=== PATIENT | male | born 2000 | race Caucasian/White ===

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

== ENCOUNTER → 2020-07-18 | Outpatient (CLI) | payer BC ==
--- NOTE | 2020-07-18 11:50 | US ---
EXAMINATION TYPE: US abdomen complete DATE OF EXAM: 07/18/2020 COMPARISON: NONE CLINICAL HISTORY: N04.9 Nephretic syndrome, R94.5 elevated liver enz. EXAM MEASUREMENTS: Liver Length: 11.5 cm Gallbladder Wall: 0.2 cm CBD: 0.3 cm Spleen: 11.6 cm Right Kidney: 9.6 x 4.1 x 4.9 cm Left Kidney: 10.8 x 4.9 x 4.9 cm Pancreas: visualized portions wnl Liver: wnl Gallbladder: No stones seen Evidence for sonographic Turcios's sign: No CBD: wnl Spleen: wnl Right Kidney: No hydronephrosis or masses seen Left Kidney: No hydronephrosis or masses seen Upper IVC: wnl Abd Aorta: wnl The liver is homogenous. The intrahepatic portion of the IVC and proximal abdominal aorta are within normal limits. There is no evidence of cholelithiasis. Common bile duct is unremarkable. The visu alized portions of the pancreas are homogenous. The spleen is unremarkable. Kidneys are symmetric a nd free of hydronephrosis. No renal lesions are seen. IMPRESSION: Unremarkable study. No hydronephrosis noted bilaterally.
== END | disposition home or self-care (01) ==
LOC: RADUSWWP 11:05
PROVIDERS: ATTEND Family Medicine
DX: N04.9 Nephrotic syndrome with unspecified morphologic changes (principal); R94.5 Abnormal results of liver function studies
CPT/HCPCS: 76700

== ENCOUNTER 2021-03-24 17:36 | Observation (INO) | payer BC ==
[2021-03-24] MEDS ORDERED: SODIUM CHLORIDE 0.9% 1,000 ML IV STA (18:24)
[2021-03-24] MEDS ORDERED: ONDANSETRON 4 MG/2 ML VIAL IVP STA (18:24)
[2021-03-24] MEDS ORDERED: MORPHINE SULFATE 2 MG/ML SYRINGE IVP STA (18:24)
[2021-03-24 18:59] LABS: Appearance,Urine Clear (Clear); Bilirubin,Urine Negative (Negative); Blood,Urine Negative (Negative); Color,Urine Light Yellow; Glucose,Urine (UA) Negative (Negative); Ketones,Urine Negative (Negative); Leukocyte Esterase,Urine Negative (Negative); Nitrite,Urine Negative (Negative); Protein,Urine Negative (Negative); Specific Gravity,Urine 1.008 (1.001-1.035); Urobilinogen,Urine <2.0 mg/dL (<2.0)
[2021-03-24 19:00] LABS: Basophils # (A) 0.1 k/uL (0-0.2); Basophils % (A) 0 %; Eosinophils # (A) 0.1 k/uL (0-0.7); Eosinophils % (A) 1 %; HCT 44.3 % (39.0-53.0); HGB 15.7 gm/dL (13.0-17.5); Lymphocytes % (A) 6 %; MCH 31.5 pg (25.0-35.0); MCHC 35.5 g/dL (31.0-37.0); MCV 88.7 fL (80.0-100.0); Mean Platelet Volume 7.3; Monocytes # (A) 0.9 k/uL (0-1.0); Monocytes % (A) 6 %; Neutrophils # (A) 13.4 k/uL (1.3-7.7); Neutrophils % (A) 86 %; Platelet Count 238 k/uL (150-450); RBC 4.99 m/uL (4.30-5.90); RDW 11.7 % (11.5-15.5); WBC 15.5 k/uL (3.8-10.6)
[2021-03-24 19:11] LABS: ALT 22 U/L (4-49); AST 26 U/L (17-59); African American GFR (CKD) >90 (>60 ml/min/1.73 sqM); Albumin 4.7 g/dL (3.5-5.0); Alkaline Phosphatase 69 U/L (38-126); Anion Gap 7 mmol/L; Blood Urea Nitrogen 9 mg/dL (9-20); Calcium 9.7 mg/dL (8.4-10.2); Carbon Dioxide 30 mmol/L (22-30); Chloride 103 mmol/L (98-107); Glucose 85 mg/dL (74-99); Lipase 41 U/L (23-300); Non-African American GFR(CKD) >90 (>60 ml/min/1.73 sqM); Potassium 3.9 mmol/L (3.5-5.1); Sodium 140 mmol/L (137-145); Total Bilirubin 0.6 mg/dL (0.2-1.3); Total Protein 7.4 g/dL (6.3-8.2)
--- NOTE | 2021-03-24 20:09 | CT ---
EXAMINATION TYPE: CT abdomen pelvis w con DATE OF EXAM: 03/24/2021 COMPARISON: None HISTORY: Generalized pain with nausea. CT DLP: 648.6 mGycm Automated exposure control for dose reduction was used. CONTRAST: Performed with IV Contrast, patient injected with 100 mL of Isovue 300. Images obtained from the diaphragm to the floor the pelvis with IV contrast. Lung bases are clear. There is no pleural effusion. Heart size is normal. There is no pericardial eff usion. Liver spleen stomach pancreas gallbladder appear normal. The bile ducts are not dilated. There is no adrenal mass. Kidneys show satisfactory contrast opacification. There is no hydronephrosi s. Ureters are not dilated. Bladder distends smoothly. There is no inguinal hernia. There is no free fluid in the pelvis. There is no evidence of a pelvic mass. There is dilated thick-walled appendix th at measures up to 15 mm in diameter. The lumbar vertebra have normal alignment. Posterior elements are intact. Bony pelvis is intact. Hip joints appear normal. There is no mesenteric edema. There is no ascites or free air. There is no bowel obstruction. IMPRESSION: Thickened appendix consistent with acute appendicitis. No abscess.
[2021-03-24] MEDS ORDERED: PIPERACILLIN-TAZOBACTAM 3.375 GM in SODIUM CHLORIDE 0.9% 100 ML IVPB STA (20:23)
[2021-03-24] MEDS ORDERED: ONDANSETRON 4 MG/2 ML VIAL IVP PRN (20:36)
[2021-03-24] MEDS ORDERED: MORPHINE SULFATE 2 MG/ML SYRINGE IV PRN (20:36)
[2021-03-24] MEDS ORDERED: NALOXONE 0.4 MG/ML 1 ML VIAL IV PRN ×2 (20:36→22:36)
--- NOTE | 2021-03-24 20:36 | ED ---
Abdominal Pain HPI - General Chief Complaint: Abdominal Pain Stated Complaint: R side pain Time Seen by Provider: 03/24/21 17:48 Source: patient Mode of arrival: ambulatory Limitations: no limitations - History of Present Illness Initial Comments: 21-year-old male patient presents to the emergency department today for evaluation of right lower quadrant abdominal pain. Patient states he fell unwell when he woke up around 11:00 this afternoon couple hours later started having severe pain to the right lower quadrant. States he did feel feverish. Reports nausea no vomiting. Denies any diarrhea or constipation. States he is having some hesitancy with urine. Denies hematuria or dysuria. Last ate at 12- 1:00pm. Denies history of abdominal surgery. Has history of nephrotic syndrome. Denies taking any medications for his symptoms. Patient denies any recent rash, cough, shortness of breath, chest pain, diarrhea, constipation, back pain, numbness, tingling, dizziness, weakness, headache, visual changes, or any other complaints. - Related Data Home Medications Medication Instructions Recorded Confirmed No Known Home Medications 03/24/21 03/24/21 Allergies Allergy/AdvReac Type Severity Reaction Status Date / Time No Known Allergies Allergy Verified 03/24/21 18:49 Review of Systems ROS Statement: Those systems with pertinent positive or pertinent negative responses have been documented in the HPI. ROS Other: All systems not noted in ROS Statement are negative. Past Medical History Past Medical History: No Reported History Additional Past Medical History / Comment(s): Kidney History of Any Multi-Drug Resistant Organisms: None Reported Past Surgical History: Orthopedic Surgery Past Psychological History: No Psychological Hx Reported Smoking Status: Never smoker Past Alcohol Use History: None Reported Past Drug Use History: None Reported General Exam Limitations: no limitations General appearance: alert, in no apparent distress, other (Physical well- developed, well-nourished adult male patient in no acute distress. Vital signs upon presentation temperature 98.2F, pulse 105, respirations 20, blood pressure 126/61, pulse ox 98% on room air.) Eye exam: Present: normal appearance, PERRL, EOMI. Absent: scleral icterus, conjunctival injection, periorbital swelling ENT exam: Present: normal exam, normal oropharynx, mucous membranes moist Respiratory exam: Present: normal lung sounds bilaterally. Absent: respiratory distress, wheezes, rales, rhonchi, stridor Cardiovascular Exam: Present: regular rate, normal rhythm, normal heart sounds. Absent: systolic murmur, diastolic murmur, rubs, gallop, clicks GI/Abdominal exam: Present: soft, tenderness (RL), normal bowel sounds. Absent: distended (RLQ, LLQ), guarding, rebound, rigid Neurological exam: Present: alert, oriented X3, CN II-XII intact Psychiatric exam: Present: normal affect, normal mood Skin exam: Present: warm, dry, intact, normal color. Absent: rash Course Vital Signs 03/24/21 17:43 Temperature 98.2 F Pulse Rate 105 H Respiratory 20 Rate Blood Pressure 126/61 O2 Sat by Pulse 98 Oximetry Medical Decision Making - Medical Decision Making 20-year-old male patient presented to the emergency department today for evaluation of right lower quadrant abdominal pain and nausea. Physical examination did reveal right lower quadrant tenderness. Left lower quadrant tenderness. Labs reviewed and did reveal elevated white blood cell count at 15,000. CT abdomen and pelvis was obtained and did reveal dilated appendix at 15 mm. No evidence for rupture abscess. Started Zosyn. Contacted Dr. Donaldson who will be taking patient to the OR [facility]. Discussed results and plan with patient and mother. Discussed with my attending Dr. Farrar. - Lab Data Result diagrams: 03/24/21 18:36 03/24/21 18:36 Lab Results 03/24/21 03/24/21 03/24/21 Range/Units 18:36 18:36 18:36 WBC 15.5 H (3.8-10.6) k/uL RBC 4.99 (4.30-5.90) m/uL Hgb 15.7 (13.0-17.5) gm/dL Hct 44.3 (39.0-53.0) % MCV 88.7 (80.0-100.0) fL MCH 31.5 (25.0-35.0) pg MCHC 35.5 (31.0-37.0) g/dL RDW 11.7 (11.5-15.5) % Plt Count 238 (150-450) k/uL MPV 7.3 Neutrophils % 86 % Lymphocytes % 6 % Monocytes % 6 % Eosinophils % 1 % Basophils % 0 % Neutrophils # 13.4 H (1.3-7.7) k/uL Lymphocytes # 1.0 (1.0-4.8) k/uL Monocytes # 0.9 (0-1.0) k/uL Eosinophils # 0.1 (0-0.7) k/uL Basophils # 0.1 (0-0.2) k/uL Sodium 140 (137-145) mmol/L Potassium 3.9 (3.5-5.1) mmol/L Chloride 103 (98-107) mmol/L Carbon Dioxide 30 (22-30) mmol/L Anion Gap 7 mmol/L BUN 9 (9-20) mg/dL Creatinine 0.86 (0.66-1.25) mg/dL Est GFR (CKD-EPI)AfAm >90 (>60 ml/min/1.73 sqM) Est GFR (CKD-EPI)NonAf >90 (>60 ml/min/1.73 sqM) Glucose 85 (74-99) mg/dL Plasma Lactic Acid Jian (0.7-2.0) mmol/L Calcium 9.7 (8.4-10.2) mg/dL Total Bilirubin 0.6 (0.2-1.3) mg/dL AST 26 (17-59) U/L ALT 22 (4-49) U/L Alkaline Phosphatase 69 (38-126) U/L Total Protein 7.4 (6.3-8.2) g/dL Albumin 4.7 (3.5-5.0) g/dL Lipase 41 (23-300) U/L Urine Color Light Yellow Urine Appearance Clear (Clear) Urine pH 7.0 (5.0-8.0) Ur Specific [place] 1.008 (1.001-1.035) Urine Protein Negative (Negative) Urine Glucose (UA) Negative (Negative) Urine Ketones Negative (Negative) Urine Blood Negative (Negative) Urine Nitrite Negative (Negative) Urine Bilirubin Negative (Negative) Urine Urobilinogen <2.0 (<2.0) mg/dL Ur Leukocyte Esterase Negative (Negative) 03/24/21 Range/Units 18:36 WBC (3.8-10.6) k/uL RBC (4.30-5.90) m/uL Hgb (13.0-17.5) gm/dL Hct (39.0-53.0) % MCV (80.0-100.0) fL MCH (25.0-35.0) pg MCHC (31.0-37.0) g/dL RDW (11.5-15.5) % Plt Count (150-450) k/uL MPV Neutrophils % % Lymphocytes % % Monocytes % % Eosinophils % % Basophils % % Neutrophils # (1.3-7.7) k/uL Lymphocytes # (1.0-4.8) k/uL Monocytes # (0-1.0) k/uL Eosinophils # (0-0.7) k/uL Basophils # (0-0.2) k/uL Sodium (137-145) mmol/L Potassium (3.5-5.1) mmol/L Chloride (98-107) mmol/L Carbon Dioxide (22-30) mmol/L Anion Gap mmol/L BUN (9-20) mg/dL Creatinine (0.66-1.25) mg/dL Est GFR (CKD-EPI)AfAm (>60 ml/min/1.73 sqM) Est GFR (CKD-EPI)NonAf (>60 ml/min/1.73 sqM) Glucose (74-99) mg/dL Plasma Lactic Acid Jian 1.3 (0.7-2.0) mmol/L Calcium (8.4-10.2) mg/dL Total Bilirubin (0.2-1.3) mg/dL AST (17-59) U/L ALT (4-49) U/L Alkaline Phosphatase (38-126) U/L Total Protein (6.3-8.2) g/dL Albumin (3.5-5.0) g/dL Lipase (23-300) U/L Urine Color Urine Appearance (Clear) Urine pH (5.0-8.0) Ur Specific [place] (1.001-1.035) Urine Protein (Negative) Urine Glucose (UA) (Negative) Urine Ketones (Negative) Urine Blood (Negative) Urine Nitrite (Negative) Urine Bilirubin (Negative) Urine Urobilinogen (<2.0) mg/dL Ur Leukocyte Esterase (Negative) - Radiology Data Radiology results: report reviewed, image reviewed CT abdomen and pelvis is obtained. Report was reviewed in its entirety. Impression by Dr. Stone shows thickened appendix consistent with acute appendicitis. No abscess. Disposition Clinical Impression: Acute appendicitis Disposition: ADMITTED IP TO THIS [facility] Condition: Serious Referrals: Bg Eden DO [Primary Care Provider] - 1-2 days Decision to Admit Reason: Admit from EC Decision Date: 03/24/21 Decision Time: 20:36
[2021-03-24] MEDS ORDERED: NEOSTIGMINE 1 MG/ML 10 ML VIAL ONE (21:51)
[2021-03-24] MEDS ORDERED: PROPOFOL 10 MG/ML 20 ML VIAL IV ONE (21:51)
[2021-03-24] MEDS ORDERED: KETOROLAC 15 MG/ML 1 ML VIAL ONE (21:51)
[2021-03-24] MEDS ORDERED: fentaNYL (PF) 50 MCG/ML 2 ML AMP ONE (21:51)
[2021-03-24] MEDS ORDERED: LACTATED RINGERS 1,000 ML IV ONE (21:51)
[2021-03-24] MEDS ORDERED: LIDOCAINE 1% INJ 10MG/ML (20 ML MDV) ONE (21:51)
[2021-03-24] MEDS ORDERED: ROCURONIUM 10 MG/ML (5 ML VIAL) IV ONE (21:51)
[2021-03-24] MEDS ORDERED: ONDANSETRON 4 MG/2 ML VIAL ONE (21:51)
[2021-03-24] MEDS ORDERED: SUCCINYLCHOLINE CHLORIDE 100 MG/5 ML SYR IV ONE (21:51)
[2021-03-24] MEDS ORDERED: DEXAMETHASONE SOD PHOSPHATE 10 MG/ML 1 ML VIAL ONE (21:51)
[2021-03-24] MEDS ORDERED: GLYCOPYRROLATE 0.2 MG/ML 2 ML VIAL ONE (21:51)
[2021-03-24] MEDS ORDERED: MIDAZOLAM 2 MG/2 ML VIAL ONE (21:51)
--- NOTE | 2021-03-24 21:53 | P.GSHP ---
History of Present Illness H&P Date: 03/24/21 This is a 20-year-old male presented the emergency room after waking up with abdominal pain this morning. He states that it was generalized abdominal pain however over the last several hours it's been located in his right lower quadrant. He has no past surgical history other than an orthopedic surgery on his elbow. He denies any nausea vomiting he denies any change in bowel movement he denies any bloody stools. He has a history of nephrotic syndrome. His kidney function is normal today. 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 On computed tomography scan patient was found to have findings consistent with acute appendicitis. Past Medical History Past Medical History: No Reported History Additional Past Medical History / Comment(s): Kidney History of Any Multi-Drug Resistant Organisms: None Reported Past Surgical History: Orthopedic Surgery Past Psychological History: No Psychological Hx Reported Smoking Status: Never smoker Past Alcohol Use History: None Reported Past Drug Use History: None Reported Medications and Allergies Home Medications Medication Instructions Recorded Confirmed Type No Known Home Medications 03/24/21 03/24/21 History Allergies Allergy/AdvReac Type Severity Reaction Status Date / Time No Known Allergies Allergy Verified 03/24/21 18:49 Surgical - Exam Osteopathic Statement: *. No significant issues noted on an osteopathic structural exam other than those noted in the History and Physical/Consult. Vital Signs Temp Pulse Resp BP Pulse Ox 98.2 F 105 H 20 126/61 98 03/24/21 17:43 03/24/21 17:43 03/24/21 17:43 03/24/21 17:43 03/24/21 17:43 - General well developed, well nourished, no distress - Eyes PERRL - Neck no masses, trachea midline - Respiratory normal expansion, normal respiratory effort - Cardiovascular Rhythm: regular - Abdomen Soft nondistended tender to palpation in the right lower quadrant no rebound no rigidity no guarding - Psychiatric oriented to time, oriented to person, oriented to place Results - Labs 03/24/21 18:36 03/24/21 18:36 Abnormal Lab Results - Last 24 Hours (Table) 03/24/21 Range/Units 18:36 WBC 15.5 H (3.8-10.6) k/uL Neutrophils # 13.4 H (1.3-7.7) k/uL Diabetes panel 03/24/21 Range/Units 18:36 Sodium 140 (137-145) mmol/L Potassium 3.9 (3.5-5.1) mmol/L Chloride 103 (98-107) mmol/L Carbon Dioxide 30 (22-30) mmol/L BUN 9 (9-20) mg/dL Creatinine 0.86 (0.66-1.25) mg/dL Glucose 85 (74-99) mg/dL Calcium 9.7 (8.4-10.2) mg/dL AST 26 (17-59) U/L ALT 22 (4-49) U/L Alkaline Phosphatase 69 (38-126) U/L Total Protein 7.4 (6.3-8.2) g/dL Albumin 4.7 (3.5-5.0) g/dL Calcium panel 03/24/21 Range/Units 18:36 Calcium 9.7 (8.4-10.2) mg/dL Albumin 4.7 (3.5-5.0) g/dL Pituitary panel 03/24/21 Range/Units 18:36 Sodium 140 (137-145) mmol/L Potassium 3.9 (3.5-5.1) mmol/L Chloride 103 (98-107) mmol/L Carbon Dioxide 30 (22-30) mmol/L BUN 9 (9-20) mg/dL Creatinine 0.86 (0.66-1.25) mg/dL Glucose 85 (74-99) mg/dL Calcium 9.7 (8.4-10.2) mg/dL Adrenal panel 03/24/21 Range/Units 18:36 Sodium 140 (137-145) mmol/L Potassium 3.9 (3.5-5.1) mmol/L Chloride 103 (98-107) mmol/L Carbon Dioxide 30 (22-30) mmol/L BUN 9 (9-20) mg/dL Creatinine 0.86 (0.66-1.25) mg/dL Glucose 85 (74-99) mg/dL Calcium 9.7 (8.4-10.2) mg/dL Total Bilirubin 0.6 (0.2-1.3) mg/dL AST 26 (17-59) U/L ALT 22 (4-49) U/L Alkaline Phosphatase 69 (38-126) U/L Total Protein 7.4 (6.3-8.2) g/dL Albumin 4.7 (3.5-5.0) g/dL Assessment and Plan Assessment: Acute appendicitis Plan: I discussed laparoscopic appendectomy possible open with the patient risks benefits and alternatives including risks of bleeding infection damage to andrea rounding tissue need for further operation and need for conversion to open were all discussed with patient he stated he understood agreed and consented. Informed consent was obtained. Patient will be kept nothing by mouth and started on IV antibiotics.
[2021-03-24] MEDS ORDERED: BUPIVACAIN-EPI 0.5%-1:200,000 30 ML VIAL SQ ONE ×2 (22:09)
--- NOTE | 2021-03-24 22:35 | P.OP ---
Date of Procedure: 03/24/21 Preoperative Diagnosis: Acute appendicitis Postoperative Diagnosis: Acute appendicitis Procedure(s) Performed: Laparoscopic appendectomy Anesthesia: GINNY Surgeon: Todd Donaldson Estimated Blood Loss (ml): 5 Pathology: none sent Condition: stable Disposition: PACU Description of Procedure: Patient is brought operative suite remained in the supine position underwent general endotracheal anesthesia per Department of anesthesia prepped and draped usual sterile fashion timeout performed correct patient correct procedure correct site was verified. A 5 mm incision was made at palmers point in the left upper quadrant and using a Visiport the abdomen was entered under direct visualization and insufflated. No injuries were noted. A 5 mm port was placed infraumbilical and a 12 mm port was placed in the left lower quadrant. Patient was placed in Trendelenburg right side up and the appendix is visualized noted be acutely inflamed. The mesial appendix was taken down with a LigaSure device to the base the base of the appendix at the cecum. Using a 45 mm purple load Endo CHELY stapler the appendix was stapled across at the base of the cecum and placed in Endo Catch bag and removed. The area was suctioned hemostasis was noted. 0 Vicryl with the aid of a Samm-Nguyen suture passer was used to close the fascia and a 12 mm port site. All other ports removed under direct visualization and the abdomen was desufflated. Skin was closed with 4-0 subcuticular Vicryl stitches and skin glue patient tolerated the procedure well there are no apparent complications
[2021-03-24] MEDS ORDERED: LACTATED RINGERS 1,000 ML IV SCH (22:45)
[2021-03-24] MEDS: HYDROcodone/APAP 5-325MG 1 EACH TAB PO PRN (23:51)
[2021-03-25] MEDS ORDERED: PIPERACILLIN-TAZOBACTAM 3.375 GM in SODIUM CHLORIDE 0.9% 100 ML IVPB SCH (04:00)
[2021-03-25 08:30] VITALS: BP 110/59; PULSE 68; RESP 16; TEMP 97.9
[2021-03-25] MEDS: HYDROcodone/APAP 5-325MG 1 EACH TAB PO PRN (09:34)
[2021-03-25 11:26] LABS: Basophils # (A) 0.03 X 10*3/uL (0.00-0.10); Basophils % (A) 0.2 %; Eosinophils # (A) 0 X 10*3/uL (0.04-0.35); Eosinophils % (A) 0 %; HCT 39.7 % (39.6-50.0); HGB 13.6 g/dL (13.0-17.0); Lymphocytes # (A) 0.77 X 10*3/uL (0.90-5.00); MCH 30.8 pg (27.0-32.0); MCHC 34.3 g/dL (32.0-37.0); Mean Platelet Volume 10.7 fL (9.5-12.2); Monocytes % (A) 3.6 %; Neutrophils # (A) 17.67 X 10*3/uL (1.80-7.70); Neutrophils % (A) 91.8 %; Platelet Count 262 X 10*3/uL (140-440); RBC 4.41 X 10*6/uL (4.40-5.60); RDW 11.4 % (11.5-14.5); WBC 19.25 X 10*3/uL (4.50-10.00)
== END 2021-03-25 11:16 | disposition home or self-care (01) ==
LOC: EC 17:36 → 4SSUR 20:26
PROVIDERS: ADMIT Student in an Organized Health Care Education/Training Program; ATTEND Student in an Organized Health Care Education/Training Program
DX: K35.80 Unspecified acute appendicitis (principal); K38.8 Other specified diseases of appendix; K21.9 Gastro-esophageal reflux disease without esophagitis; Z20.822 Contact with and (suspected) exposure to COVID-19; Z87.441 Personal history of nephrotic syndrome
CPT/HCPCS: 44970; 96361; 96374; 96375; 99285; 36415; 88304; 80053; 83605; 83690; 85025 ×2; 81003; 87635; 74177; G0378 ×2; J2543 ×2; J2250; J1100; J2710; J2405; J2001; J3010; J2270; J1885; J0330; J2704; Q9967